=== PATIENT | female | born 2000 | race Caucasian/White ===

== ENCOUNTER 2022-06-08 07:42 | Inpatient (IN) | payer MEDICAID, OTHER ==
[~2022-06-08] VITALS: Ht 162.6 cm; Wt 117.9 kg
[2022-06-08] MEDS ORDERED: LIDOCAINE HCL 1% 20ML VIAL (Pyxis) INJ INFIL SCH (10:00)
[2022-06-08] MEDS ORDERED: MISOPROSTOL 100MCG TABLET VG SCH (10:00)
[2022-06-08] MEDS ORDERED: RHO(D) IMMUNE GLOBULIN 300 MCG/SYR IM NR (10:00)
[2022-06-08] MEDS ORDERED: METHYLERGONOVINE MALEATE 0.2 MG/ML IM PRN (10:00)
[2022-06-08] MEDS ORDERED: BUTORPHANOL TARTRATE 2 MG/ML VIAL IV PRN (10:00)
[2022-06-08] MEDS ORDERED: NALOXONE HCL 0.4 MG/ML 1ML VIAL IM PRN (10:00)
[2022-06-08 10:26] LABS: BASOPHILS % 0.2 % (0.0-2.0); EOSINOPHILS % 0.4 % (0.0-5.0); HEMATOCRIT. 30.4 % (36.0-48.0); HEMOGLOBIN. 10.2 g/dL (12.0-16.0); LYMPHOCYTES % 10.7 % (20.0-50.0); MEAN CORPUSCULAR HEMOGLOBIN 30.6 pg (28.0-32.0); MEAN CORPUSCULAR VOLUME 90.7 fL (81.0-99.0); MEAN PLATELET VOLUME 9.3 fl (7.4-10.4); MONOCYTES % 4.1 % (2.0-8.0); NEUTROPHILS % 84.6 % (40.0-76.0); PLATELET 211 x1000/uL (130-400); RED BLOOD CELL COUNT 3.35 mill/uL (4.2-5.4); RED CELL DISTRIBUTION WIDTH 13.8 % (11.6-14.6)
[2022-06-08 10:32] LABS: CLARITY URINE CLEAR (CLEAR); COLOR URINE YELLOW (YELLOW); KETONES URINE NEGATIVE (NEGATIVE); LEUKOCYTE ESTERASE URINE 3+ (NEGATIVE); NITRITE URINE NEGATIVE (NEGATIVE); OCCULT BLOOD URINE NEGATIVE (NEGATIVE); PROTEIN URINE NEGATIVE (NEGATIVE); SPECIFIC GRAVITY URINE 1.008 (1.005-1.030); UROBILINOGEN URINE 0.2 E.U./dL (0.2-1.0)
[2022-06-08 10:41] LABS: INR 0.9; PARTIAL THROMBOPLASTIN TIME 30.7 sec (23.4-31.0); PROTHROMBIN TIME 9.6 sec (9.6-11.0)
[2022-06-08 10:57] LABS: *AMPHETAMINES SCREEN URINE NEGATIVE (NEGATIVE); *BARBITURATES SCREEN URINE NEGATIVE (NEGATIVE); *BENZODIAZEPINES SCREEN URINE NEGATIVE (NEGATIVE); *COCAINE SCREEN URINE NEGATIVE (NEGATIVE); CANNABINOID URINE SCREEN NEGATIVE (NEGATIVE); METHADONE URINE SCREEN NEGATIVE (NEGATIVE); OPIATES URINE SCREEN NEGATIVE (NEGATIVE); PHENCYCLIDINE URINE SCREEN NEGATIVE (NEGATIVE)
[2022-06-08 11:02] LABS: HEPATITIS B SURFACE ANTIGEN NEGATIVE
[2022-06-08] MEDS: LACTATED RINGERS 1,000 ML IV SCH ×3 (11:28→17:55)
[2022-06-08] MEDS ORDERED: MORPHINE SULFATE/PF 1MG/ML 10ML AMP ONE (17:37)
[2022-06-08] MEDS ORDERED: ONDANSETRON HCL 4MG/2ML INJ ONE (17:50)
[2022-06-08] MEDS ORDERED: OXYTOCIN 10 UNITS/ML 1ML ONE ×6 (17:50)
[2022-06-08] MEDS ORDERED: KETOROLAC 60MG/2ML VIAL IM ONE (17:50)
[2022-06-08] MEDS ORDERED: DEXAMETHASONE 4MG/ML 1ML VIAL ONE (17:50)
[2022-06-08] MEDS ORDERED: CEFAZOLIN SODIUM 1000MG/VIAL ONE (17:50)
[2022-06-08] MEDS ORDERED: EPHEDRINE SULFATE 50MG/ML VIAL ONE (18:02)
[2022-06-08] MEDS ORDERED: PHENYLEPHRINE HCL 10 MG/ML 1ML (IV VIAL) IV ONE (18:03)
[2022-06-08] MEDS ORDERED: MORPHINE SULFATE 2 MG/ML CPJ (NOT FOR IM USE) IV PRN (21:30)
[2022-06-08] MEDS ORDERED: FENTANYL CITRATE/PF 50MCG/ML 2ML VIAL IV PRN (21:30)
[2022-06-08] MEDS ORDERED: KETOROLAC 30MG/ML VIAL IV PRN (21:30)
[2022-06-08] MEDS ORDERED: MORPHINE SULFATE 10 MG/ML CPJ IV PRN (21:30)
[2022-06-08] MEDS ORDERED: NALOXONE HCL 0.4 MG/ML 1ML VIAL IV PRN (21:30)
[2022-06-09] VITALS (8 sets, daily range): BP systolic 96–104; BP diastolic 52–62
[2022-06-09] MEDS: LACTATED RINGERS 1,000 ML IV SCH ×2 (05:32→13:38)
[2022-06-09 06:43] LABS: HEMATOCRIT. 29.1 % (36.0-48.0); HEMOGLOBIN. 9.8 g/dL (12.0-16.0); MEAN CORPUSCULAR HEMOGLOBIN 30.4 pg (28.0-32.0); MEAN CORPUSCULAR VOLUME 90.7 fL (81.0-99.0); MEAN PLATELET VOLUME 8.9 fl (7.4-10.4); PLATELET 220 x1000/uL (130-400); RED BLOOD CELL COUNT 3.21 mill/uL (4.2-5.4); RED CELL DISTRIBUTION WIDTH 14.1 % (11.6-14.6)
[2022-06-09 14:09] LABS: PLATELET ESTIMATE NORMAL
[2022-06-09] MEDS ORDERED: IBUPROFEN 400MG TABLET PO PRN (21:15)
[2022-06-09] MEDS ORDERED: LANOLIN OINT 7GM TUBE TOP PRN (21:15)
[2022-06-09] MEDS: IBUPROFEN 800MG TABLET PO PRN (21:24)
[2022-06-09] MEDS ORDERED: BISACODYL 10MG SUPP PR PRN (22:00)
[2022-06-10] MEDS: IBUPROFEN 800MG TABLET PO PRN ×3 (03:20→21:06)
[2022-06-10 04:00] VITALS: BP 117/57
[2022-06-10 08:01] VITALS: BP 110/63
[2022-06-10 08:28] LABS: BASOPHILS % 0.3 % (0.0-2.0); EOSINOPHILS % 0.8 % (0.0-5.0); HEMOGLOBIN. 8.8 g/dL (12.0-16.0); LYMPHOCYTES % 15.1 % (20.0-50.0); MEAN CORPUSCULAR HEMOGLOBIN 30.9 pg (28.0-32.0); MEAN CORPUSCULAR VOLUME 91.7 fL (81.0-99.0); MEAN PLATELET VOLUME 8.5 fl (7.4-10.4); MONOCYTES % 7.7 % (2.0-8.0); NEUTROPHILS % 76.1 % (40.0-76.0); PLATELET 185 x1000/uL (130-400); RED BLOOD CELL COUNT 2.84 mill/uL (4.2-5.4); RED CELL DISTRIBUTION WIDTH 13.8 % (11.6-14.6)
[2022-06-10] MEDS: MAGNESIUM/ALUMINUM HYDROXIDE/SIMETHICONE 30ML UDC PO SCH ×2 (09:05→21:06)
[2022-06-10] MEDS: SIMETHICONE 80MG TABLET CHEW PO SCH ×2 (09:05→21:06)
[2022-06-10] MEDS: FERROUS SULFATE 325MG TABLET PO SCH (09:05)
[2022-06-10] MEDS: PRENATAL VIT/FE FUMARATE/FA TABLET PO SCH (09:05)
[2022-06-10 12:01] VITALS: BP 109/59
[2022-06-10 16:00] VITALS: BP 112/65
[2022-06-10 19:30] VITALS: BP 107/62
[2022-06-10] MEDS ORDERED: DOCUSATE SODIUM 100MG CAPSULE PO SCH (21:00)
[2022-06-11] MEDS: IBUPROFEN 800MG TABLET PO PRN (03:31)
[2022-06-11 04:00] VITALS: BP 102/63
[2022-06-11] MEDS: MAGNESIUM/ALUMINUM HYDROXIDE/SIMETHICONE 30ML UDC PO SCH (07:30)
[2022-06-11] MEDS ORDERED: IBUP-2030 PO (07:30)
[2022-06-11 08:00] VITALS: BP 115/72
[2022-06-11] MEDS: SIMETHICONE 80MG TABLET CHEW PO SCH (08:00)
[2022-06-11] MEDS: FERROUS SULFATE 325MG TABLET PO SCH (09:23)
[2022-06-11] MEDS: PRENATAL VIT/FE FUMARATE/FA TABLET PO SCH (09:23)
== END 2022-06-11 11:00 | disposition home or self-care (01) | DRG 540 ==
LOC: OBSVTOIN 07:42 → 8 EST LDRP 07:42 → 8EST 06-09 00:55
PROVIDERS: ADMIT Obstetrics & Gynecology; ATTEND Obstetrics & Gynecology
PROC: 10D00Z1 Extraction of Products of Conception, Low, Open Approach (ICD-10-PCS; principal; 2022-06-08)
DX: O48.0 Post-term pregnancy (principal); O99.13 Other diseases of the blood and blood-forming organs and certain disorders involving the immune mechanism complicating the puerperium; O36.63X0 Maternal care for excessive fetal growth, third trimester, not applicable or unspecified; Z37.0 Single live birth; Z3A.41 41 weeks gestation of pregnancy; Z20.822 Contact with and (suspected) exposure to COVID-19; O99.214 Obesity complicating childbirth; D72.829 Elevated white blood cell count, unspecified; O90.81 Anemia of the puerperium
CPT/HCPCS: 36415; 76805; 76818; 80305; 81003; 85025; 86592; 86703; 86762; 86850; 86900; 87340; 87426; 99281; G0378; J0690; J1100; J1885; J2274; J2370; J2405; J3490; J7120; A4315